=== PATIENT | male | born 1990 | race Hispanic/Latino ===

== ENCOUNTER 2020-08-05 19:09 | Observation (INO) | payer BC, OTHER ==
[~2020-08-05] VITALS: Ht 177.8 cm; Wt 120.4 kg
[2020-08-05] MEDS ORDERED: ONDANSETRON HCL 4 MG/2 ML VIAL ONE (19:29)
[2020-08-05] MEDS ORDERED: CEFAZOLIN SODIUM 1 GM VIAL ONE (19:30)
[2020-08-05] MEDS ORDERED: MORPHINE SULFATE 4 MG/1ML SYG ONE (19:30)
[2020-08-05 19:59] LABS: BASOPHILS % (AUTO) 0.6 % (0.0-5.0); EOSINOPHILS % (AUTO) 2.2 % (0.0-8.0); HEMATOCRIT 43.6 % (42-54); LYMPHOCYTES % (AUTO) 31.8 % (21.0-51.0); MEAN CORPUSCULAR HGB CONC 33.5 g/dL (32.0-36.0); MEAN CORPUSCULAR VOLUME 83.7 fL (79-99); MONOCYTES % (AUTO) 4.8 % (3.0-13.0); NEUTROPHILS % (AUTO) 60.3 % (40.0-77.0); PLATELET COUNT (AUTO) 335 K/uL (130-400); RED BLOOD CELL COUNT(AUTO) 5.21 MIL/uL (4.50-6.20); RED CELL DISTRIBUTION WIDTH 13.2 % (11.0-15.5); WHITE BLOOD COUNT (AUTO) 14.3 K/uL (4.8-10.8)
[2020-08-05 20:13] LABS: INR 1.04 (0.85-1.15); PROTHROMBIN TIME 11.1 SEC (9.6-11.6)
[2020-08-05 20:14] LABS: PARTIAL THROMBOPLASTIN TIME 23.4 SEC (26.3-35.5)
[2020-08-05 20:16] LABS: ALBUMIN 3.8 g/dL (3.5-5.0); BILIRUBIN,TOTAL 0.3 mg/dL (0.2-1.0); TOTAL PROTEIN, SERUM 7.6 g/dL (6.0-8.3)
[2020-08-05] MEDS ORDERED: TETANUS/DIPHTHERIA TOXOID [ADULT] 0.5 ML VIAL IM ONE (20:20)
[2020-08-05] MEDS ORDERED: MORPHINE SULFATE 2 MG/ML 1ML SYG ONE (22:11)
[2020-08-06] VITALS (16 sets, daily range): BP systolic 107–125; BP diastolic 52–73
[2020-08-06] MEDS ORDERED: MORPHINE SULFATE 2 MG/ML 1ML SYG ONE ×6 (00:04→05:21)
[2020-08-06] MEDS: MORPHINE SULFATE 2 MG/ML 1ML SYG IVP PRN ×6 (04:00→12:23)
[2020-08-06] MEDS ORDERED: ONDANSETRON HCL 4 MG/2 ML VIAL IVP PRN (04:00)
[2020-08-06] MEDS ORDERED: SUCCINYLCHOLINE 200MG/10ML SYR ONE (13:12)
[2020-08-06] MEDS ORDERED: LIDOCAINE PF 2% 5ML ABBOJECT ONE (13:12)
[2020-08-06] MEDS ORDERED: PROPOFOL 10 MG/ML 20ML VIAL IV ONE (13:13)
[2020-08-06] MEDS ORDERED: MIDAZOLAM HCL 1 MG/ML 2ML VIAL ONE (13:13)
[2020-08-06] MEDS ORDERED: FENTANYL CITRATE PF 50 MCG/1 ML 2ML VIAL ONE (13:13)
[2020-08-06] MEDS: CEFAZOLIN SODIUM 1 GM VIAL ONE ×2 (13:50→14:25)
[2020-08-06] MEDS ORDERED: MEPERIDINE-PF 25 MG/ML SYG ONE (14:53)
[2020-08-06] MEDS ORDERED: KETOROLAC TROMETHAMINE 30MG/ML ONE (14:54)
== END 2020-08-06 17:45 | disposition home or self-care (01) ==
LOC: EDH 19:09 → EDHIP 20:10 → 4BH 08-06 03:24
PROVIDERS: ADMIT Surgery Plastic and Reconstructive Surgery; ATTEND Surgery Plastic and Reconstructive Surgery
DX: U07.1 COVID-19 (principal); S61.213A Laceration without foreign body of left middle finger without damage to nail, initial encounter; Z23 Encounter for immunization; X58.XXXA Exposure to other specified factors, initial encounter; Y93.89 Activity, other specified; Y92.89 Other specified places as the place of occurrence of the external cause
CPT/HCPCS: 11042; 36415; 73130; 80053; 82550; 85025; 85610; 85730; 86900; 86901; 87426; 90471; 90714; 96374; 96376; 99284; A4222; A4223; C1713; C1776 ×2; G0168; G0378 ×21; J0330; J0690 ×2; J1885; J2001; J2175; J2250; J2270; J2405; J2704; J3010; U0003